=== PATIENT | male | born 1985 | race Caucasian/White ===

== ENCOUNTER 2018-03-31 22:02 | Emergency (ER) | payer BC ==
[~2018-03-31] VITALS: Ht 182.9 cm; Wt 72.6 kg
[2018-03-31 22:24] VITALS: BP 140/102
[2018-03-31] MEDS ORDERED: ONDANSETRON 4 MG TAB.RAPDIS ONE (22:59)
[2018-03-31] MEDS ORDERED: ONDANSETRON 4 MG TAB.RAPDIS SL ONE (23:00)
== END 2018-03-31 23:43 | disposition home or self-care (01) ==
LOC: ER 22:03
DX: R11.0 Nausea (principal); Z59.0 Homelessness; F41.9 Anxiety disorder, unspecified; F90.9 Attention-deficit hyperactivity disorder, unspecified type; Z60.2 Problems related to living alone
CPT/HCPCS: 99283; A4606; Q0162; Z7610